=== PATIENT | female | born 1990 | race Caucasian/White ===

== ENCOUNTER 2016-10-24 15:35 | Inpatient (IN) | payer OTHER ==
[~2016-10-24] VITALS: Ht 167.6 cm; Wt 98.4 kg
[2016-10-24 15:30] VITALS: BP 105/61
[2016-10-24 16:33] LABS: AMNISURE POSITIVE (NEGATIVE)
[2016-10-24 16:34] LABS: AMNI OBC PASS
[2016-10-24] MEDS ORDERED: OXYTOCIN 30U/ 0.9% NaCL 500ML 500 ML IV ONE (17:02)
[2016-10-24] MEDS ORDERED: D5%-LACTATED RINGERS 1,000 ML IV SCH (17:02)
[2016-10-24 17:29] LABS: HEMATOCRIT 33.4 % (34.6-47.8); HEMOGLOBIN 10.9 g/dL (11.7-16.4)
[2016-10-24] MEDS ORDERED: ONDANSETRON 2MG/ML, 2ML IVPush PRN (17:30)
[2016-10-24] MEDS ORDERED: FENTANYL PF 100 MCG/2ML IV PRN (17:30)
[2016-10-24] MEDS ORDERED: FENTANYL PF 100 MCG/2ML IVPush PRN (17:30)
[2016-10-24 17:51] VITALS: BP 97/55
[2016-10-24] MEDS: LACTATED RINGERS 1,000 ML IV SCH ×2 (17:51→20:23)
[2016-10-24] MEDS ORDERED: BETAMETHASONE 6 MG/ML, 5ML IM ONE (18:16)
[2016-10-24] MEDS ORDERED: BETAMETHASONE 6 MG/ML, 5ML IM SCH (18:30)
[2016-10-24] MEDS ORDERED: PENICILLIN GK 5,000,000 UNITS in DEXTROSE 5% 100 ML IVPB ONE (18:30)
[2016-10-24] MEDS ORDERED: PREN1TAB60 PO (18:38)
[2016-10-24] MEDS ORDERED: OXYTOCIN 30U/ 0.9% NaCL 500ML 500 ML ONE (18:42)
[2016-10-24] MEDS ORDERED: OXYTOCIN 30U/ 0.9% NaCL 500ML 500 ML IV PRN (18:46)
[2016-10-24] MEDS ORDERED: NEWBORN KIT ONE (19:00)
[2016-10-24] MEDS: PENICILLIN GK 2,500,000 UNITS in DEXTROSE 5% 100 ML IVPB SCH (22:38)
[2016-10-25] MEDS: PENICILLIN GK 2,500,000 UNITS in DEXTROSE 5% 100 ML IVPB SCH ×2 (02:28→06:30)
[2016-10-25] MEDS ORDERED: FENTANYL PF 100 MCG/2ML ONE (03:31)
[2016-10-25] MEDS ORDERED: LIDOCAINE/PF 1.5%-EPI 1:200K, 30ML ONE ×2 (03:46→03:50)
[2016-10-25] MEDS ORDERED: FENTANYL/BUPIV./NS/PF 250 ML EPIDCONT ONE ×2 (03:46→03:50)
[2016-10-25] MEDS ORDERED: FENTANYL/BUPIV./NS/PF 250 ML EPIDCONT SCH (04:09)
[2016-10-25] MEDS ORDERED: LACTATED RINGERS 1,000 ML IV SCH (04:09)
[2016-10-25] MEDS: OXYTOCIN 30U/ 0.9% NaCL 500ML 500 ML IV SCH ×2 (04:27→14:27)
[2016-10-25] MEDS ORDERED: DIPH,PERTUSS(ACELL),TET VAC/PF NC IM-VACC PRN (04:30)
[2016-10-25] MEDS ORDERED: GLYCERIN ADULT SUPP PR PRN (04:30)
[2016-10-25] MEDS ORDERED: MEASLES,MUMPS&RUBELLA VACC/PF 0.5 ML SQ PRN (04:30)
[2016-10-25] MEDS ORDERED: ONDANSETRON 2MG/ML, 2ML IV PRN (04:30)
[2016-10-25] MEDS ORDERED: CARBOPROST TROMETHAMINE 250 MCG/ML, 1ML IM PRN (04:30)
[2016-10-25] MEDS ORDERED: BISACODYL 10 MG SUPP PR PRN (04:30)
[2016-10-25] MEDS ORDERED: IBUPROFEN 600 MG TABLET PO PRN (04:30)
[2016-10-25] MEDS ORDERED: MISOPROSTOL 200 MCG TABLET PR PRN (04:30)
[2016-10-25] MEDS ORDERED: RHOGAM FROM BLOOD BANK 1 NOTE EA IM/IV ONE (04:30)
[2016-10-25] MEDS ORDERED: MAGNESIUM HYDROXIDE 8%, 30ML UDC PO PRN (04:30)
[2016-10-25] MEDS ORDERED: ACETAMINOPHEN 325 MG TABLET PO PRN ×2 (04:30)
[2016-10-25] MEDS ORDERED: METOCLOPRAMIDE 5 MG/ML, 2ML IV PRN (04:30)
[2016-10-25] MEDS ORDERED: METHYLERGONOVINE 0.2 MG/ML IM PRN (04:30)
[2016-10-25] MEDS ORDERED: HYDROcodone/APAP 10/325 MG TABLET PO PRN (04:30)
[2016-10-25] MEDS ORDERED: LACTATED RINGERS 1,000 ML IVBOLUS PRN (04:30)
[2016-10-25] MEDS ORDERED: DOCUSATE 100 MG CAPSULE PO PRN (04:30)
[2016-10-25] MEDS ORDERED: CALCIUM CARBONATE 500 MG TAB.CHEW PO PRN (04:30)
[2016-10-25] MEDS ORDERED: HYDROcodone/APAP 5/325 TABLET PO PRN (04:30)
[2016-10-25 06:10] VITALS: BP 105/63
[2016-10-25 07:30] VITALS: BP 94/57
[2016-10-25] MEDS: PRENATAL VIT/IRON/FA 1 EACH TABLET PO SCH (09:00)
[2016-10-25 11:32] LABS: HEMATOCRIT 33.4 % (34.6-47.8); HEMOGLOBIN 10.9 g/dL (11.7-16.4)
[2016-10-25 12:14] LABS: DIFF TOTAL CELLS COUNTED 100 CELL DIFF
[2016-10-25 12:20] LABS: VERIFY COUNTS? YES
[2016-10-25 16:00] VITALS: BP 102/71
[2016-10-25 21:30] VITALS: BP 99/62
[2016-10-26] MEDS: OXYTOCIN 30U/ 0.9% NaCL 500ML 500 ML IV SCH ×2 (00:27→01:35)
[2016-10-26 07:00] VITALS: BP 107/68
[2016-10-26] MEDS ORDERED: IBUP-1222 PO (09:45)
[2016-10-26] MEDS: PRENATAL VIT/IRON/FA 1 EACH TABLET PO SCH (14:16)
[2016-10-26 19:30] VITALS: BP 108/50
[2016-10-27] MEDS: OXYTOCIN 30U/ 0.9% NaCL 500ML 500 ML IV SCH ×2 (06:27→06:33)
[2016-10-27 09:30] VITALS: BP 112/66
[2016-10-27] MEDS: PRENATAL VIT/IRON/FA 1 EACH TABLET PO SCH (09:56)
== END 2016-10-27 13:15 | disposition home or self-care (01) | DRG 774 ==
LOC: LDOP 15:35 → LDIP 16:55 → 2NW 10-25 06:00
PROVIDERS: ADMIT Student in an Organized Health Care Education/Training Program; ATTEND Student in an Organized Health Care Education/Training Program
PROC: 3E0S3CZ (ICD-10-PCS; principal; 2016-10-25)
PROC: 00HU33Z Insertion of Infusion Device into Spinal Canal, Percutaneous Approach (ICD-10-PCS; 2016-10-25)
PROC: 10907ZC Drainage of Amniotic Fluid, Therapeutic from Products of Conception, Via Natural or Artificial Opening (ICD-10-PCS; 2016-10-25)
PROC: 10E0XZZ Delivery of Products of Conception, External Approach (ICD-10-PCS; 2016-10-25)
DX: O42.913 Preterm premature rupture of membranes, unspecified as to length of time between rupture and onset of labor, third trimester (principal); O45.93 Premature separation of placenta, unspecified, third trimester; O40.3XX0 Polyhydramnios, third trimester, not applicable or unspecified; Z37.0 Single live birth; Z3A.34 34 weeks gestation of pregnancy
CPT/HCPCS: 36415; 76815; 84112; 85025; 86850; 86900; 87081; J0702; J2540; J3010; J3490; J2590; J7120